=== PATIENT | male | born 1940 | race Caucasian/White ===

== ENCOUNTER 2021-03-26 23:47 | Emergency (ER) | payer OTHER ==
[~2021-03-26] VITALS: Ht 182.9 cm; Wt 63.5 kg
[2021-03-27 00:13] VITALS: BP_SYST 109
--- NOTE | 2021-03-27 00:18 | NUR ---
PT BIB [facility] FOR ABDOMINAL PAIN SINCE 03/26/21 0800. PT WOKE UP TODAY WITH ABDOMINAL PAIN OF 5/10 CONSISTANT AND GRADUAL. PT HAS A HX OF CIDP. PT STATES HE FEELS CONSTIPATED ALL DAY. A&OX4. PT LIVES AT HOME.
--- NOTE | 2021-03-27 00:20 | NUR ---
# 20 gauge angiocath placed to RAC. Use of asceptic technique. Opsite placed over site. Blood return noted. Blood for lab drawn from site. Flushed with 10 cc of normal saline. No evidence of infiltration noted. Patient tolerated well.
[2021-03-27] MEDS ORDERED: NACL 0.9% 1,000 ML IV ONE (00:30)
--- NOTE | 2021-03-27 00:30 | NUR ---
ER at bedside examining patient.
[2021-03-27 00:36] LABS: BASOPHILS % (AUTO) 0.2 % (0.0-2.0); EOSINOPHILS # (AUTO) 0.1 K/uL (0.0-0.4); EOSINOPHILS % (AUTO) 1.1 % (0.0-4.0); LYMPHOCYTES # (AUTO) 0.6 K/uL (1.0-5.5); LYMPHOCYTES % (AUTO) 8.5 % (20.5-51.5); MEAN CORPUSCULAR HEMOGLOBIN 17 pg (27-31); MEAN CORPUSCULAR HGB CONC 28 % (32-36); MEAN CORPUSCULAR VOLUME 58 fL (79.0-98.0); MONOCYTES # (AUTO) 0.5 K/uL (0.0-1.0); NEUTROPHILS # (AUTO) 6.1 K/uL (1.8-7.7); NEUTROPHILS % (AUTO) 83.2 % (40.0-70.0); PLATELET COUNT (AUTO) 211 K/uL (130-430); RED BLOOD CELL COUNT(AUTO) 4.18 MIL/uL (4.2-6.2); RED CELL DISTRIBUTION WIDTH 19.9 % (9.0-15.0); WHITE BLOOD COUNT (AUTO) 7.3 K/uL (4.8-10.8)
[2021-03-27 00:39] LABS: ANION GAP 6 (5-15); CALCIUM 8.4 mg/dL (8.4-11.0); CHLORIDE 105 mmol/L (98-107); GLUCOSE 114 mg/dL (70-99); POTASSIUM 3.8 mmol/L (3.5-5.1); SODIUM SERUM 141 mmol/L (136-145); UREA NITROGEN, BLOOD 18 mg/dL (8-21)
[2021-03-27 00:45] LABS: ALANINE AMINOTRANSFERASE 27 U/L (12-78); ALBUMIN 2.3 g/dL (3.4-4.8); ASPARTATE AMINOTRANSFERASE 19 U/L (10-37); LIPASE 306 U/L (73-393); TOTAL BILIRUBIN 0.3 mg/dL (0.0-1.0)
[2021-03-27 00:47] LABS: HEMATOCRIT 24.4 % (36-54); HEMOGLOBIN 6.9 g/dL (14.0-18.0)
--- NOTE | 2021-03-27 01:30 | NUR ---
ASSISTED DR INGRAM TO PERFORM OCCULT TEST
--- NOTE | 2021-03-27 03:45 | NUR ---
Consent signed per NURSE DUE TO PATIENT NOT BEING PHYSICALLY ABLE TO SIGN agreeing to administration of blood. Blood has been type and crossmatched. Blood sent from blood bank. Information on unit of blood checked against patient wristband at bedside by two nurses. All information matches. Patient or responsible alliance party informed of potential complications associated with blood transfusion. Informed of possible transfusion reaction symptoms. Aware of need to notify nurse at once of itching, shortness of breath, flushing, feeling of impending doom, or other symptoms not previously present. Vital signs taken within 5 minutes prior to initiation of transfusion. RN will remain with patient for first 15 minutes of transfusion at which time vital signs will be re-assessed.
--- NOTE | 2021-03-27 04:45 | NUR ---
SPOKE WITH DAUGHTER ALTAGRACIA WITH CONSENT FROM THE PATIENT. PT IS AWARE OF THE SITUATION AND GIVEN AN UPDATE
[2021-03-27] MEDS ORDERED: PANT20TA2 PO (04:55)
[2021-03-27] MEDS ORDERED: MOM PO (04:55)
--- NOTE | 2021-03-27 05:06 | NUR ---
1000ML OF SOAP SHRUTHI ENEMA ADMINSITERED TO PT. WILL CHECK UPON PT SOON.
--- NOTE | 2021-03-27 05:30 | NUR ---
DR INGRAM IN ROOM PERFORMING A DISIMPACTION.
--- NOTE | 2021-03-27 06:00 | NUR ---
PTs BLOOD TRANSFUSION COMPLETE. TOLERATED WELL
--- NOTE | 2021-03-27 06:03 | NUR ---
PT GIVEN 500ML MORE OF THE ENEMA. PT TOLERATED WELL.
--- NOTE | 2021-03-27 06:09 | NUR ---
SPOKE WITH PTs DAUGHTER. DAUGHTER WILL BE GOING TO GET HIS SCOOTER TO TRANSPORT PT TO HIS HOUSE.
--- NOTE | 2021-03-27 07:13 | NUR ---
PTs FAMILY ARRIVED AND PICKED UP PT WITH HIS MOTORIZED SCOOTER.
--- NOTE | 2021-03-27 07:13 | NUR ---
Patient given written and verbal discharge instructions and verbalizes understanding. ER MD discussed with patient the results and treatment provided. Patient in stable condition. ID arm band removed. IV catheter removed intact and dressing applied, no active bleeding. Rx of MAGNESIUM HYDROXIDE,PANTOPRZOLE given. Patient educated on pain management and to follow up with PMD. Pain Scale 0/10. Opportunity for questions provided and answered. Medication side effect fact sheet provided.
[2021-03-27 07:14] VITALS: BP_SYST 104
== END 2021-03-27 07:13 | disposition home or self-care (01) ==
LOC: SED 23:47
DX: K59.00 Constipation, unspecified (principal); D64.9 Anemia, unspecified
CPT/HCPCS: 36415; 36430; 74018; 80053; 82272; 83690; 85025; 86886; 86900; 86901; 86920; 96360; 99285; J7030; P9021